=== PATIENT | male | born 2000 | race African-American/Black ===

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

== ENCOUNTER 2020-01-10 16:05 | Inpatient (IN) | payer MEDICAID ==
[2020-01-10] VITALS (12 sets, daily range): BP systolic 104–139; BP diastolic 47–87; BMI 23.0
[~2020-01-10] VITALS: Ht 177.8 cm; Wt 72.6 kg
[2020-01-10 17:32] LABS: UDS - AMPHET NEGATIVE QUAL (NEGATIVE); UDS - BARB NEGATIVE QUAL (NEGATIVE); UDS - BENZO NEGATIVE QUAL (NEGATIVE); UDS - COCAINE NEGATIVE QUAL (NEGATIVE); UDS - OPIATE NEGATIVE QUAL (NEGATIVE); UDS - PCP NEGATIVE QUAL (NEGATIVE); UDS - THC POSITIVE QUAL (NEGATIVE)
[2020-01-10 17:35] LABS: BASOPHILS 0.5 % (0-2); EOSINOPHILS 3.8 % (0-7); HEMATOCRIT 40.5 % (42.0-54.0); IMMATURE GRANULOCYTES 0.4 % (0-5); LYMPHOCYTES 37.5 % (15-50); MCH 30.6 pg (26.0-34.0); MCHC 34.6 g/dL (31.0-37.0); MCV 88.6 fL (80.0-100.0); MONOCYTES 4.7 % (2-11); NEUTROPHILS 53.1 % (40-80); PLATELET COUNT 333 10x3/uL (130-400); RBC 4.57 10x6/uL (4.20-6.10); RDW 12.8 % (11.5-14.5); WBC 8.5 10x3/uL (4.8-10.8)
--- NOTE | 2020-01-10 17:39 | NUR ---
SSI SCREEN UNABLE TO COMPLETED. ALL ANSWERS MARKED NO DUE TO PATIENT BEING LETHARGIC
[2020-01-10 17:58] LABS: CALC OSMOLALITY 275 mosm/kg (275-300); CALCIUM 7.8 mg/dL (8.5-10.1); CHLORIDE - SERUM 111 mmol/L (98-107); CREATININE - SERUM 0.6 mg/dL (0.6-1.3); GLUCOSE 105 mg/dL (74-106); POTASSIUM - SERUM 3.4 mmol/L (3.5-5.1); SODIUM 139 mmol/L (136-145); UREA NITROGEN 8 mg/dL (7-18); eGFR NON AFRICAN AMERICAN > 90 mL/min (90-120)
[2020-01-10 18:05] LABS: ALBUMIN 3.6 g/dL (3.4-5.0); ALKALINE PHOSPHATASE 60 U/L (30-120); ALT (SGPT) 11 U/L (10-68); BILIRUBIN - TOTAL 0.91 mg/dL (0.2-1.3); MAGNESIUM - SERUM 1.8 mg/dL (1.8-2.4); PROTEIN - SERUM 6.5 g/dL (6.4-8.2)
--- NOTE | 2020-01-10 18:31 | NUR ---
PT REPORT CALLED TO SLADE GHOTRA
--- NOTE | 2020-01-10 18:35 | NUR ---
ADMISSION COVID SCREEN SENT TO LAB AT THIS TIME
[2020-01-10 18:39] LABS: BILIRUBIN NEGATIVE (NEGATIVE); KETONE NEGATIVE (NEGATIVE); NITRITE NEGATIVE (NEGATIVE); UROBILINOGEN NORMAL mg/dL (< 2)
--- NOTE | 2020-01-10 19:45 | NUR ---
MARIA E OROZCON NOTIFIED OF PATIENT ARRIVAL, ORDERS FOR NS @ 75ML/HR RECIEVED AND TO CONTINUE ORDERED PROPOFOL. AWAIT FURTHER ADMISSION ORDERS.
[2020-01-11] VITALS (24 sets, daily range): BP systolic 106–138; BP diastolic 52–72; Ht 177.8 cm; Wt 72.6 kg
--- NOTE | 2020-01-11 02:18 | NUR ---
PT VOMITED, EMESIS CHARCOAL BLACK (PREVIOUSLY RECIEVED CHARCOAL IN ER). FULL BED BATH AND LINEN CHANGE PROVIDED.
[2020-01-11 04:48] LABS: BASOPHILS 0.2 % (0-2); EOSINOPHILS 0.8 % (0-7); HEMATOCRIT 39.9 % (42.0-54.0); HEMOGLOBIN 13.6 g/dL (13.5-17.5); IMMATURE GRANULOCYTES 0.3 % (0-5); LYMPHOCYTES 11.5 % (15-50); MCH 30.2 pg (26.0-34.0); MCHC 34.1 g/dL (31.0-37.0); MCV 88.7 fL (80.0-100.0); MEAN PLATELET VOLUME 9.4 fL (7.4-10.4); MONOCYTES 5.9 % (2-11); NEUTROPHILS 81.3 % (40-80); PLATELET COUNT 385 10x3/uL (130-400)
[2020-01-11 04:53] LABS: WBC 11.7 10x3/uL (4.8-10.8)
[2020-01-11 05:13] LABS: CALC OSMOLALITY 282 mosm/kg (275-300); CHLORIDE - SERUM 108 mmol/L (98-107); CREATININE - SERUM 0.7 mg/dL (0.6-1.3); GLUCOSE 89 mg/dL (74-106); MAGNESIUM - SERUM 1.6 mg/dL (1.8-2.4); PHOSPHOROUS 3.6 mg/dL (2.5-4.9); POTASSIUM - SERUM 3.3 mmol/L (3.5-5.1); SODIUM 143 mmol/L (136-145); THYROID STIMULATING HORMONE 0.44 uIU/mL (0.36-3.74); UREA NITROGEN 9 mg/dL (7-18); eGFR NON AFRICAN AMERICAN > 90 mL/min (90-120)
[2020-01-12] VITALS (17 sets, daily range): BP systolic 93–129; BP diastolic 45–77
[2020-01-12 04:59] LABS: BASOPHILS 0.1 % (0-2); EOSINOPHILS 1.7 % (0-7); HEMATOCRIT 37.5 % (42.0-54.0); HEMOGLOBIN 12.7 g/dL (13.5-17.5); IMMATURE GRANULOCYTES 0.3 % (0-5); LYMPHOCYTES 8.1 % (15-50); MCH 30.2 pg (26.0-34.0); MCHC 33.9 g/dL (31.0-37.0); MCV 89.3 fL (80.0-100.0); MEAN PLATELET VOLUME 9.4 fL (7.4-10.4); MONOCYTES 6.5 % (2-11); NEUTROPHILS 83.3 % (40-80); PLATELET COUNT 326 10x3/uL (130-400); RDW 13.1 % (11.5-14.5); WBC 11.8 10x3/uL (4.8-10.8)
[2020-01-12 05:25] LABS: CALC OSMOLALITY 273 mosm/kg (275-300); CALCIUM 8.2 mg/dL (8.5-10.1); CHLORIDE - SERUM 105 mmol/L (98-107); CREATININE - SERUM 0.6 mg/dL (0.6-1.3); GLUCOSE 80 mg/dL (74-106); MAGNESIUM - SERUM 1.9 mg/dL (1.8-2.4); PHOSPHOROUS 3.2 mg/dL (2.5-4.9); SODIUM 138 mmol/L (136-145); UREA NITROGEN 10 mg/dL (7-18); eGFR NON AFRICAN AMERICAN > 90 mL/min (90-120)
[2020-01-12 05:29] LABS: POTASSIUM - SERUM 3.9 mmol/L (3.5-5.1)
--- NOTE | 2020-01-12 08:02 | NUR ---
REPORT RECEIVED FROM OFF GOING NURSE AND PATIENT CARE ASSUMED. PATIENT LAYING IN BED ON BACK WITH EYES CLOSED SEDATED ON VENT AC 14 FIO2 30 TV 500 PEP 5 KIMI SOFT WRIST RESTRAINTS IN PLACE AND SECURED. RUIZ CATHETER DRANING BLACK URINE. IV LT FA DIP 80 MCG RT AC NS 74 BP 115/52 O2 SAT 98 % T 98.8 HR 72. NG RT NARE TO INTMET LOW SUCTION. WILL CONTINUE WITH PLAN OF CARE. SR UP X 2 BED IN LOW POSITION AND CALL LIGHT IN REACH.
--- NOTE | 2020-01-12 08:07 | NUR ---
REPORT RECEIVED FROM OFF GOING NURSE AND PATIENT CARE ASSUMED. PATIENT LAYING IN BED ON BACK WITH EYES CLOSED ON BIPAP. PATIENT AWAKENS EASILY TO VOICE. PATIENT FOLLOWS COMMANDS. BIPAP [address] [place] [address] T 99.8 CVP 14 HR 133 O2 SAT 99%. RUIZ INTACT DRAINING CLEAR YELLOW URINE. KENNETH DRAIN #1 LLABDOMEN TO SUCTION DRAINING SANGINOUS FLUID KENNETH #2 TO RLABDOMEN TO SUCTION AND DRAINING SANGUINOUS FLUID. K+ 6.3 BUN 20 CREAT 1.1. PER OFF GOING NURSE, CALL TO DR REESE NO RETURN CALL AT THIS TIME. WILL CONTTINUE WITH PLAN OF CARE. SR UP X 2 BED IN LOW POSITION AND CALL LIGHT IN REACH.
--- NOTE | 2020-01-12 12:24 | NUR ---
Nutrition follow-up: Pt intubated, sedated with propofol @ 33.6 ml/hr NPO Labs reviewed Wt: 160# Possible extubation today RDN following.
--- NOTE | 2020-01-12 13:00 | NUR ---
PATIENT IS STABLE AND VSS. PER V/O COSME VIVAS DCMallory. PATIENT AWAKENED AND FOLLOWED COMMANDS. PATIENT EXTUBATE WITHOUT DIFFICULTY O2 NC3L. O2 SAT99%. PATIENT TRYING TO PULL RUIZ OUT, IV OUT AND GET OUT OF BED. KIMI WRIST RESTRAINTS INTACT. WILL CONTINUE TO MONITOR. SR UP X 2 BED IN LOW POSITION AND CALL LIGHT IN REACH.
--- NOTE | 2020-01-12 15:33 | NUR ---
PATIENT EXTUBATED AT 1315. HAS BEEN COMBATIVE AND ANGRY TOWARD STAFF. PATIENT HAS REMOVED TELEMETRY LEADS, O2 PROBE AND NASAL CANNULA. PATIENT UNCOOPERATIVE AND VITALS THAT WERE ABLE TO BE TAKEN WERE RECORDED.
--- NOTE | 2020-01-12 19:52 | MORECARE ---
CASE MANAGEMENT DISCHARGE SUMMARY PATIENT: ARLENE SALINAS UNIT: [id number] ADM DATE: 01/10/20 AGE: 19 : 00 SEX: M ROOM/BED: D.2301 AUTHOR: CHRIS SANTOS PHYSICIAN: REFERRING PHYSICIAN: JAYLIN SERRANO MD DATE OF SERVICE: 01/12/20 Discharge Plan Patient Name: ARLENE SALINAS Facility: [facility]:[place] : 2000 Planned Disposition: Anticipated Discharge Date: Discharge Date: 01/12/2020 Expected LOS: Initial Reviewer: [email or web address] Initial Review Date: 01/10/2020 Generated: 01/12/20 8:52 pm Patient Name: ARLENE SALINAS Page [id number] at 1951 All edits/amendments must be made on the electronic document DICTATION DATE: 01/12/201951 PATIENT ACCESS DIRECTOR: GONZALEZ 01/12/201951 RPT#: [id number] DC DATE:01/12/20 STATUS: DIS IN [facility] [address] [place] [address] END OF REPORT
== END 2020-01-12 16:03 | disposition home or self-care (01) | DRG 917 ==
LOC: D.ER 16:05 → D.ICU 18:45
PROVIDERS: ADMIT Family Medicine; ATTEND Family Medicine
PROC: 5A1945Z Respiratory Ventilation, 24-96 Consecutive Hours (ICD-10-PCS; principal; 2020-01-10)
PROC: 0BH17EZ Insertion of Endotracheal Airway into Trachea, Via Natural or Artificial Opening (ICD-10-PCS; 2020-01-10)
DX: T65.91XA Toxic effect of unspecified substance, accidental (unintentional), initial encounter (principal); G92 Toxic encephalopathy; J96.00 Acute respiratory failure, unspecified whether with hypoxia or hypercapnia; F10.129 Alcohol abuse with intoxication, unspecified; J45.909 Unspecified asthma, uncomplicated; E87.6 Hypokalemia; E83.42 Hypomagnesemia